=== PATIENT | female | born 1980 | race Native Hawaiian/Other Pacific Islander ===

== ENCOUNTER 2017-06-12 10:06 | Emergency (ER) | payer OTHER ==
[~2017-06-12] VITALS: Ht 162.6 cm; Wt 43.5 kg
[2017-06-12 11:03] LABS: PLATELET COUNT 230 K/uL (152-353)
[2017-06-12 11:06] LABS: POTASSIUM 3.2 mmol/L (3.6-5.2)
[2017-06-12 16:30] VITALS: BP 97/59; TEMP 98.7
== END 2017-06-12 16:30 | disposition short-term general hospital (02) ==
LOC: ED 10:06
PROVIDERS: Emergency Medicine
DX: K35.80 Unspecified acute appendicitis (principal); N39.0 Urinary tract infection, site not specified
CPT/HCPCS: 36415; 80053; 81000; 82150; 83690; 85027; 87077; 87086; 87088; 87186; 96361; 96365; 96366; 96375; 99284; J0696; J2175; J2405; J2543; Q9963

== ENCOUNTER 2017-06-12 17:06 | Outpatient (CLI) | payer OTHER | END 2017-06-12 18:05 | disposition short-term general hospital (02) | LOC: AMB 17:06 | DX: K35.80 Unspecified acute appendicitis (principal); N39.0 Urinary tract infection, site not specified | CPT/HCPCS: A0425; A0427 ==